=== PATIENT | female | born 1970 | race Caucasian/White ===

== ENCOUNTER → 2016-10-18 | Outpatient (CLI) | payer OTHER ==
--- NOTE | 2016-10-18 16:35 | RADRPT ---
PROCEDURE: XR Pelvis and left Hip. CLINICAL INDICATION: Hip pain TECHNIQUE: Three views of the pelvis and left hip are available for review. COMPARISON: No prior studies are available for comparison. FINDINGS: There is bony prominence at the lateral femoral head osseous suggesting features of cam type femoral acetabular impingement. Similar findings are seen on the right hip. Joint spaces are otherwise pr eserved. No acute osseous abnormality is seen. Mild marginal irregularity productive changes seen at the SI joints bilaterally. IMPRESSION: 1. 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 2. No acute osseous abnormality. RPTAT: PP .Ricky Zhang MD, MD Date Time Electronically viewed and signed by .Ricky Zhang MD, on 10/18/2016 16:35 .d/
== END | disposition home or self-care (01) ==
LOC: HKI 16:51
PROVIDERS: ATTEND Orthopaedic Surgery
DX: M25.552 Pain in left hip (principal)
CPT/HCPCS: 73502; G0463